=== PATIENT | female | born 1970 | race Caucasian/White ===

== ENCOUNTER 2016-05-31 12:21 | Emergency (ER) | payer OTHER ==
[2016-05-31 12:36] VITALS: BMI 22.6
[2016-05-31] MEDS ORDERED: MAG HYDROX/AL HYDROX/SIMETH 355 ML ORAL.SUSP PO ONE (13:05)
[2016-05-31] MEDS ORDERED: FAMOTIDINE 20 MG/50 ML IVPB 20 MG in PREMIX 50 IVPB ONE (13:05)
[2016-05-31] MEDS ORDERED: MAG HYDROX/AL HYDROX/SIMETH 30 ML UNIT-DOSE CUP ONE (13:12)
--- NOTE | 2016-05-31 13:14 | PDOC ---
History of Present Illness - General History Source: Patient Exam Limitations: No Limitations <Silvio Sotelo - Last Filed: 05/31/16 19:06> <Wong Alvarenga - Last Filed: 05/31/16 20:20> - General Chief Complaint: Chest Pain Stated Complaint: CHEST PAIN, NAUSEA Time Seen by Provider: 05/31/16 12:33 - History of Present Illness Initial Comments: 05/31/16 19:06 The patient is a 46 year old female, with a significant past medical history of chronic pain, cervical discopathy s/p spinal fusion 4/5, fibromyalgia, mitral valve prolapse, IBS, interstitial cystitis, seizures, urinary incontience, and HIV, who presents to the emergency department with chest pain, shortness of breath, nausea, dizziness since this mornning. She describes her chest pain as mild, without radiation or modifying factors. She states that her dizziness resolved. She notes that the currently has a sore on the floor of her mouth, with pain that is mild, which is exacerbated when she eats. She reports that she recently had pneumonia. She denies having these kind of symptoms in the past . The patient denies headache, fever, chills, vomit, diarrhea and constipation. Denies dysuria, frequency, urgency and hematuria. Family history: Mother (ND age 55, of Lung CA at age 63) Allergies: Adhesive tape, doxycycline, cortizone Past surgical history: None reported Social history: No alcohol use, cigarette use (2 daily) (Silvio Sotelo) Past History <Silvio Sotelo - Last Filed: 05/31/16 19:06> - Past Medical History Anemia: No Asthma: No Cancer: No Cardiac Disorders: Yes (Mitral valve Prolaspe) CVA: No COPD: No CHF: No Dementia: No Diabetes: No GI Disorders: Yes (GERD, IBS) Disorders: No HTN: No Hypercholesterolemia: No HIV: Yes Kidney Stones: No Liver Disease: No Psychiatric Problems: Yes (Anxiety, Depression) Suicide Attempt (Hx): No Seizures: Yes Thyroid Disease: No - Surgical History Abdominal Surgery: No Appendectomy: No Cardiac Surgery: No Cholecystectomy: No Lung Surgery: No Neurologic Surgery: No Orthopedic Surgery: Yes (NECK-C4 C5 ACD) - Reproductive History PID: No - Psycho/Social/Smoking Cessation Hx Anxiety: No Suicidal Ideation: No Smoking History: Current every day smoker Have you smoked in the past 12 months: Yes Number of Cigarettes Smoked Daily: 3 If you are a former smoker, when did you quit?: 11/2014 Information on smoking cessation initiated: No 'Breaking Loose' booklet given: 08/20/15 Hx Alcohol Use: No Drug/Substance Use Hx: No Substance Use Type: None Hx Substance Use Treatment: No <Wong Alvarenga - Last Filed: 05/31/16 20:20> - Past Medical History Allergies/Adverse Reactions: Allergies Allergy/AdvReac Type Severity Reaction Status Date / Time adhesive tape Allergy Verified 05/31/16 12:36 doxycycline Allergy Verified 05/31/16 12:36 hydrocortisone Allergy Verified 05/31/16 12:36 [From Cortizone-10] Home Medications: Ambulatory Orders Valacyclovir HCl [Valtrex -] 500 mg PO DAILY 08/20/15 Aripiprazole [Abilify] 10 mg PO DAILY 05/31/16 Bethanechol Chloride [Urecholine] 50 mg PO TID 05/31/16 Gabapentin 100 mg PO BID 05/31/16 Hydroxyzine Pamoate [Vistaril -] 25 mg PO QID PRN 05/31/16 Lopinavir/Ritonavir [Kaletra 100-25 mg Tablet] 1 each PO BID 05/31/16 Lorazepam [Ativan] 0.5 mg PO DAILY 05/31/16 Lorazepam [Ativan] 1 mg PO HS 05/31/16 Magnesium Oxide [Mgo] 400 mg PO BID 05/31/16 Mirtazapine [Remeron -] 30 mg PO HS 05/31/16 Nevirapine [Viramune] 200 mg PO BID 05/31/16 Pantoprazole Sodium [Protonix] 40 mg PO BID 05/31/16 Polyvinyl Alcohol [Liquitears] 15 ml OP QID 05/31/16 Simethicone 80 mg PO QID PRN 05/31/16 Sucralfate [Carafate -] 1 gm PO HS 05/31/16 Trazodone HCl [Desyrel -] 150 mg PO HS PRN 05/31/16 Venlafaxine HCl ER [Effexor Xr -] 75 mg PO DAILY 05/31/16 Vitamin B Complex 1 each PO DAILY 05/31/16 Cardiac Specific PMH - Complaint Specific PMHX Pacemaker: No <Wong Alvarenga - Last Filed: 05/31/16 20:20> Review of Systems - Review of Systems Able to Perform ROS?: Yes <Silvio Sotelo - Last Filed: 05/31/16 19:06> <Wong Alvarenga - Last Filed: 05/31/16 20:20> - Review of Systems Comments:: 05/31/16 19:06 CONSTITUTIONAL: No reported: Fever, Chills, Diaphoresis, Generalized Weakness, Malaise, Loss of Appetite HEENT: No reported: Rhinorrhea, Nasal Congestion, Throat Pain, Throat Swelling, Difficulty Swallowing, Mouth Swelling, Ear Pain, Eye Pain, Visual Changes CARDIOVASCULAR: No reported: Chest Pain, Syncope, Palpitations, Irregular Heart Rate, Lightheadedness, Peripheral Edema RESPIRATORY: No reported: Cough, Shortness of Breath, SOB with Exertion, Orthopnea, Wheezing , Stridor, Hemoptysis GASTROINTESTINAL: No reported: Abdominal pain, Abdominal Distension, Nausea, Vomiting, Diarrhea, Constipation, Melena, Hematochezia GENITOURINARY: No reported: Dysuria, Frequency, Urgency, Hesitancy, Flank Pain, Genital Pain MUSCULOSKELETAL: No reported: Myalgia, Arthralgia, Joint Swelling, Back pain, Neck Pain SKIN: No reported: Rash, Itching, Pallor HEMEATOLOGIC/IMMUNOLOGIC: No reported: Easy Bleeding, Easy Bruising, Lymphadenopathy, Frequent infections ENDOCRINE: No reported: Unexplained Weight Gain, Unexplained Weight Loss, Heat Intolerance , Cold Intolerance NEUROLOGIC: No reported: Headache, Focal Weakness, Paresthesias, Vertigo, Lightheadedness, Unsteady Gait, Seizure, Mental Status Changes, Incontinence PSYCHIATRIC: No reported: Anxiety, Depression (Silvio Sotelo) *Physical Exam <Silvio Sotelo - Last Filed: 05/31/16 19:06> <Wong Alvarenga - Last Filed: 05/31/16 20:20> - Vital Signs Last Vital Signs Temp Pulse Resp BP Pulse Ox 98.6 F 87 18 127/77 100 05/31/16 19:14 05/31/16 19:14 05/31/16 19:14 05/31/16 19:14 05/31/16 19:14 - Physical Exam Comments: 05/31/16 19:06 GENERAL: The patient is awake, alert, and fully oriented, Nontoxic - in no acute distress. HEAD: Normocephalic, atraumatic. EYES: extraocular movements intact, sclera anicteric, conjunctiva clear. ENT: Normal voice, Moist mucous membranes. NECK: Normal range of motion, supple LUNGS: Breath sounds equal, clear to auscultation bilaterally. No wheezes, no rhonchi, no rales. HEART: Regular rate and rhythm, without murmur, rub or gallop. ABDOMEN: Soft, nontender, normoactive bowel sounds. No guarding, no rebound.No CVA tenderness EXTREMITIES: Normal range of motion, no edema. No clubbing or cyanosis. No cords, erythema, or tenderness. NEUROLOGICAL: No facial assymetry, Normal speech, PSYCH: Normal mood, normal affect. SKIN: Warm, Dry, normal turgor, (Silvio Sotelo) Heart Score/ECG Review <Silvio Sotelo - Last Filed: 05/31/16 19:06> - History History: Slightly suspicious - Electrocardiogram EKG: Normal - Age Age: 45-65 - Risk Factors Risk Factors Heart Score: Yes Smoking History Based on the list above the patient has:: 1-2 risk factors - Troponin Troponin: </= normal limit - Score Heart Score - Total: 2 <Wong Alvarenga - Last Filed: 05/31/16 20:20> - ECG Impressions Comment:: 05/31/16 14:48 Twelve-lead EKG was performed and reviewed by me. There is normal sinus rhythm with a normal rate. Rate of 92 The axis is normal. The intervals are normal. There is normal R wave progression There are no ST or T wave abnormalities. No changes suggestive of acute ischemia Impression: Normal twelve-lead EKG 05/31/16 18:35 Twelve-lead EKG was performed and reviewed by me. There is normal sinus rhythm with a normal rate. Rate of 82 The axis is normal. The intervals are normal. There is normal R wave progression There are no ST or T wave abnormalities. no changes from previous ekg Impression: Normal twelve-lead EKG (Wong Alvarenga) ED Treatment Course - LABORATORY CBC & Chemistry Diagram: 05/31/16 13:07 05/31/16 13:07 <Silvio Sotelo - Last Filed: 05/31/16 19:06> - LABORATORY CBC & Chemistry Diagram: 05/31/16 13:07 05/31/16 13:07 <Wong Alvarenga - Last Filed: 05/31/16 20:20> - ADDITIONAL ORDERS Additional order review: Laboratory Results 05/31/16 05/31/16 05/31/16 18:33 13:07 13:07 Sodium 141 Potassium 4.3 Chloride 103 Carbon Dioxide 30 Anion Gap 8 BUN 19 H D Creatinine 0.6 Creat Clearance w eGFR > 60 Random Glucose 95 D Calcium 8.5 Total Bilirubin 0.4 AST 17 ALT 28 D Alkaline Phosphatase 108 Creatine Kinase 54 55 Troponin I < 0.02 < 0.02 Total Protein 7.0 Albumin 3.6 Lipase 146 Urine Color Ltyellow Urine Appearance Clear Urine pH 5.0 D Ur Specific [place] 1.025 Urine Protein Negative Urine Glucose (UA) Negative Urine Ketones Negative Urine Blood Negative Urine Nitrite Negative Urine Bilirubin Negative Urine Urobilinogen Negative Ur Leukocyte Esterase Negative Urine HCG, Qual Negative 05/31/16 13:07 RBC 4.41 MCV 87.0 MCHC 33.3 RDW 17.2 H D MPV 9.4 D Neutrophils % 58.5 Lymphocytes % 34.0 D Monocytes % 6.0 Eosinophils % 0.9 Basophils % 0.6 - RADIOLOGY Radiology Studies Ordered: Category Date Time Status CHEST X-RAY PORTABLE* [RAD] Stat Radiology 05/31/16 13:05 Completed Radiograph Interpretation: 05/31/16 14:36 Chest X-Ray Reviewed by: Dr. Roberto Mohr Impression: No evidence of active pulmonary disease (Silvio Sotelo) - Medications Given in the ED: ED Medications Discontinued Medications Generic Name Dose Route Start Last Admin Trade Name Freq PRN Reason Stop Dose Admin Al Hydroxide/Mg Hydroxide 30 ml 05/31/16 13:05 05/31/16 13:17 Mylanta Suspension - PO 05/31/16 13:06 30 ml ONCE ONE Administration Aspirin 162 mg 05/31/16 13:45 05/31/16 13:54 Asa - PO 05/31/16 13:46 162 mg ONCE ONE Administration Famotidine/Sodium Chloride 20 50 mls @ 100 mls/hr 05/31/16 13:05 05/31/16 13:25 mg/ Miscellaneous IVPB 05/31/16 13:34 100 mls/hr ONCE ONE Administration Medical Decision Making <Silvio Sotelo - Last Filed: 05/31/16 19:06> <Wong Alvarenga - Last Filed: 05/31/16 20:20> - Medical Decision Making 05/31/16 13:07 46y F hx of depression, ibs, fibromyalgia, presents with chest pain starting approximately 7am described as a chest tightness/pressure associated with mild sob and lightheaded. pt does endorse smoe exertional dyspnea recently. on exam the pt is well appearing in no distress. vitals normal Differential for the patients chest pain includes but not limited to acute coronary syndrome, aortic dissection, pneumonia, pulmonary embolism, AAA, based on the patients clinical syndrome, consider possible ACS - HEART score of 2 Do not feel that PE is likely based on the symptoms. Do not feel that dissection/AAA is is likely due to onset and clinical presentation of symptoms (lack of palpable pulsatile mass, symmetric pulses, lack of associated neurologic sypmtoms) will obtain blood work including: cbc, cmp, UA, UHCG ekg, troponin to r/o acs cxr to r/o acute pulmonary disease will treat the pts pain with analgesia ivf for hydration zofran for nausea A portion of this note was documented by scribe services under my direction. I have reviewed the details of the note, within reason, and agree with the documentation with the following case summary and management plan written by me 05/31/16 14:48 pts labs reviewed trop neg x 1 cxr negative ekg nonischemic pt feelign slightly improved tps HEART scor is 2 - consider observation vs. 2 set r/o pt states she [refers not to stay i h ehospital - will obtin 2nd troponin at 6 hrs and if pt pain freen and trops neg will d/c home wiht cardiology fu 05/31/16 19:33 repeat ekg unchanged pt feelng improved 05/31/16 20:18 trop neg x 2 will dc with pmd and cardiology fu I discussed the physical exam findings, ancillary test results and final diagnoses with the patient. I answered all of the patient's questions. The patient was satisfied with the care received and felt comfortable with the discharge plan and treatment plan. The patient will call their primary care physician within 24 hours to arrange follow-up and will return to the Emergency Department with any new, persistent or worsening symptoms. (Wong Alvarenga) *DC/Admit/Observation/Transfer <Silvio Sotelo - Last Filed: 05/31/16 19:06> - Discharge Dispostion Admit: No <Wong Alvarenga - Last Filed: 05/31/16 20:20> Diagnosis at time of Disposition: Chest pain Qualifiers: Chest pain type: unspecified Qualified Code(s): R07.9 - Chest pain, unspecified - Discharge Dispostion Disposition: HOME Condition at time of disposition: Improved - Referrals Referrals: Pacheco Turpin [Primary Care Provider] - Ronn Mcneil MD [Staff Physician] - - Patient Instructions Printed Discharge Instructions: DI for Atypical Chest Pain Additional Instructions: Return to the emergency department immediately with ANY new, persistent or worsening symptoms including any chest pain, shortenss of breath or any other concerns. You MUST call and follow up with your doctor and a home care administrator within 2 days for further evaluation of your symptoms. Results were discussed with you. Please make sure your doctor reviews the results of your emergency evaluation. If you had any xrays during your visit, it was read preliminarily by myself, a Radiologist will review it and if there are any additional findings we will call you. Print Language: LUXEMBOURGER - Attestations Scribe Attestion: 05/31/16 19:07 Documentation prepared by Silvio Sotelo, acting as medical review coordinator for Wong Alvarenga MD (Silvio Sotelo)
[2016-05-31] MEDS ORDERED: FAMOTIDINE 20 MG/50 ML IVPB 50 ML IVPB ONE (13:22)
[2016-05-31 13:34] LABS: URINE APPEARANCE CLEAR; URINE BILIRUBIN NEGATIVE (NEGATIVE); URINE BLOOD NEGATIVE (NEGATIVE); URINE COLOR LTYELLOW; URINE GLUCOSE (UA) NEGATIVE (NEGATIVE); URINE KETONE NEGATIVE (NEGATIVE); URINE LEUK ESTERASE NEGATIVE (NEGATIVE); URINE NITRITE NEGATIVE (NEGATIVE); URINE PROTEIN NEGATIVE (NEGATIVE); URINE UROBILINOGEN NEGATIVE E.U./dl (0.2-1.0)
[2016-05-31] MEDS ORDERED: ASPIRIN 81 MG CHEWABLE TABLETS PO ONE (13:45)
[2016-05-31] MEDS ORDERED: ASPIRIN 81 MG CHEWABLE TABLETS ONE (13:53)
[2016-05-31 13:54] LABS: BASOPHIL 0.6 % (0-2.0); EOSINOPHIL 0.9 % (0-4.5); MCHC 33.3 g/dl (32.0-36.0); MEAN PLT VOLUME 9.4 fl (7.5-11.1); NEUTROPHILS 58.5 % (42.8-82.8); PLATELET COUNT 179 K/MM3 (134-434); RDW 17.2 % (11.6-15.6); WHITE BLOOD COUNT 10.4 K/mm3 (4.0-10.0)
[2016-05-31 14:22] LABS: ALBUMIN 3.6 g/dl (3.4-5.0); ALK PHOS 108 U/L (45-117); ANION GAP 8 (8-16); BILIRUBIN,TOTAL 0.4 mg/dL (0.2-1.0); CALCIUM 8.5 mg/dL (8.5-10.1); CO2 30 mmol/L (21-32); CREATININE 0.6 mg/dL (0.55-1.02); GLUCOSE,RANDOM 95 mg/dL (74-106); SGOT/AST 17 U/L (15-37); SGPT/ALT 28 U/L (12-78)
[2016-05-31 14:24] LABS: TROPONIN I < 0.02 ng/ml (0.00-0.05)
--- NOTE | 2016-05-31 15:57 | EKG ---
Test Reason : Blood Pressure : / mmHG Vent. Rate : 092 BPM Atrial Rate : 192 BPM P-R Int : 000 ms QRS Dur : 074 ms QT Int : 344 ms P-R-T Axes : 079 050 044 degrees QTc Int : 425 ms NORMAL SINUS RHYTHM NORMAL ECG WHEN COMPARED WITH ECG OF 20-AUG-2015 19:18, NO SIGNIFICANT CHANGE WAS FOUND Confirmed by BO ALVAREZ MD ([id number]) on 05/31/2016 3:56:39 PM Referred By: Confirmed By:BO ALVAREZ MD
[2016-05-31 19:15] VITALS: BP 127/77; PULSE 87; TEMP 98.6
[2016-05-31 20:04] LABS: TROPONIN I < 0.02 ng/ml (0.00-0.05)
--- NOTE | 2016-06-01 10:41 | EKG ---
Test Reason : Blood Pressure : / mmHG Vent. Rate : 082 BPM Atrial Rate : 082 BPM P-R Int : 148 ms QRS Dur : 072 ms QT Int : 372 ms P-R-T Axes : 072 050 043 degrees QTc Int : 434 ms NORMAL SINUS RHYTHM POSSIBLE LEFT ATRIAL ENLARGEMENT BORDERLINE ECG WHEN COMPARED WITH ECG OF 31-MAY-2016 12:27, SINUS RHYTHM HAS REPLACED ATRIAL FLUTTER Confirmed by JAVIER CISNEROS, ILEANA ([id number]) on 06/01/2016 10:41:22 AM Referred By: Confirmed By:ILEANA HERRERA MD
== END 2016-05-31 20:20 | disposition home or self-care (01) ==
LOC: JER 12:21
PROC: 3E033GC Introduction of Other Therapeutic Substance into Peripheral Vein, Percutaneous Approach (ICD-10-PCS; principal; 2016-05-31)
DX: R07.9 Chest pain, unspecified (principal); F32.9 Major depressive disorder, single episode, unspecified; M79.7 Fibromyalgia; K21.9 Gastro-esophageal reflux disease without esophagitis; Z21 Asymptomatic human immunodeficiency virus [HIV] infection status; F41.9 Anxiety disorder, unspecified; F17.210 Nicotine dependence, cigarettes, uncomplicated
CPT/HCPCS: 36415; 71010-TC; 80053; 81003; 82550; 83690; 84484; 84703; 85025; 93005; 93010; 96365; 99284-25